=== PATIENT | male | born 1940 | race Caucasian/White ===

== ENCOUNTER 2016-04-30 11:00 | Outpatient (RCR) | payer OTHER | END 2016-05-08 | disposition home or self-care (01) | LOC: PTY 11:00 | DX: M25.551 Pain in right hip (principal); R26.81 Unsteadiness on feet; R53.81 Other malaise ==

== ENCOUNTER 2016-05-14 11:00 | Outpatient (RCR) | payer OTHER | END 2016-06-05 | disposition home or self-care (01) | LOC: PTY 11:00 | DX: M25.551 Pain in right hip (principal); R26.81 Unsteadiness on feet; R53.81 Other malaise ==

== ENCOUNTER 2016-06-18 11:00 | Outpatient (RCR) | payer OTHER | END 2016-07-06 | disposition home or self-care (01) | LOC: PTY 11:00 | DX: M25.551 Pain in right hip (principal); R26.81 Unsteadiness on feet; R53.81 Other malaise ==

== ENCOUNTER 2016-07-09 11:00 | Outpatient (RCR) | payer OTHER | END 2016-08-05 | disposition home or self-care (01) | LOC: PTY 11:00 | DX: R53.81 Other malaise (principal); M25.551 Pain in right hip ==